=== PATIENT | female | born 1980 | race Caucasian/White ===

== ENCOUNTER 2017-03-19 08:55 | Emergency (ER) | payer OTHER ==
[2017-03-19 09:29] LABS: HEMOGLOBIN 15.3 gm/dl (12.3-15.3); WHITE BLOOD COUNT 9.7 K/UL (4.5-11.0)
[2017-03-19 10:12] LABS: BUN/CREATININE RATIO 10 (0-10)
== END 2017-03-19 13:40 | disposition home or self-care (01) ==
LOC: ER1 08:55
PROVIDERS: Emergency Medicine
DX: R07.1 Chest pain on breathing (principal); E87.6 Hypokalemia; R91.8 Other nonspecific abnormal finding of lung field; R06.02 Shortness of breath; R11.0 Nausea; F17.200 Nicotine dependence, unspecified, uncomplicated
CPT/HCPCS: 36415; 71010; 71020; 80053; 82550; 82553; 83874; 84484; 85025; 85379; 93005; 99285

== ENCOUNTER → 2017-03-26 | Outpatient (CLI) | payer OTHER ==
[2017-03-26 14:14] LABS: HEMOGLOBIN 12.8 gm/dl (12.3-15.3); RED BLOOD COUNT 4.21 M/UL (4.00-5.10); WHITE BLOOD COUNT 7.6 K/UL (4.5-11.0)
[2017-03-26 14:27] LABS: BUN/CREATININE RATIO 8 (0-10)
== END ==
LOC: LAB 13:28
PROVIDERS: Family Medicine
DX: F31.9 Bipolar disorder, unspecified (principal)
CPT/HCPCS: 36415; 80053; 85025

== ENCOUNTER 2021-02-28 23:09 | Emergency (ER) | payer OTHER ==
[~2021-02-28 23:09] MED LIST: CYCLOBENZAPRINE10 MG PO; FLONASE 0.05% N16 GM; IBUPROFEN600 MG PO; SUDAFED 60 MG T60 MG PO; TYLENOL 500 MG500 MG PO; ZITHROMAX250 MG PO; ZOFRAN ODT 4 MG4 MG SL
[2021-03-01 00:20] LABS: HEMOGLOBIN 12.6 gm/dl (12.3-15.3); RED BLOOD COUNT 4.08 M/UL (4.00-5.10)
[2021-03-01 00:37] LABS: BUN/CREATININE RATIO 14 (0-10)
== END 2021-03-01 06:05 | disposition home or self-care (01) ==
LOC: ER1 23:09
PROVIDERS: Physician Assistant
DX: R55 Syncope and collapse (principal); R42 Dizziness and giddiness; R59.0 Localized enlarged lymph nodes; J94.8 Other specified pleural conditions; F17.210 Nicotine dependence, cigarettes, uncomplicated; Z88.6 Allergy status to analgesic agent
CPT/HCPCS: 70450; 71045; 80053; 81001; 82550; 82553; 83874; 83880; 84484; 84703; 85025; 85379; 85610; 85730; 87086; 99284; Q9967

== ENCOUNTER → 2021-06-02 | Outpatient (CLI) | payer OTHER | LOC: RAD 11:33 | DX: M54.5 Low back pain (principal); M54.6 Pain in thoracic spine; M50.30 Other cervical disc degeneration, unspecified cervical region | CPT/HCPCS: 72050; 72072; 72110 ==

== ENCOUNTER 2021-06-09 23:07 | Emergency (ER) | payer SELFPAY ==
[2021-06-10 00:02] LABS: BUN/CREATININE RATIO 8 (0-10)
[2021-06-10 00:17] LABS: HEMOGLOBIN 13.3 gm/dl (12.3-15.3); RED BLOOD COUNT 4.44 M/UL (4.00-5.10); WHITE BLOOD COUNT 6.3 K/UL (4.5-11.0)
[2021-06-10] MEDS ORDERED: BENTYL 20MG TAB20 MG PO (05:38)
[2021-06-10] MEDS ORDERED: ZOFRAN ODT 4 MG4 MG SL (05:38)
[2021-06-10] MEDS ORDERED: PEPCID20 MG PO (05:38)
== END 2021-06-10 05:45 | disposition home or self-care (01) ==
LOC: ER1 23:07
PROVIDERS: Physician Assistant
DX: R11.2 Nausea with vomiting, unspecified (principal); R19.7 Diarrhea, unspecified; F17.200 Nicotine dependence, unspecified, uncomplicated; Z20.822 Contact with and (suspected) exposure to COVID-19
CPT/HCPCS: 80053; 81001; 83690; 84703; 85025; 87086; 96372; 96374; 96375; 99284; J0500; J2405; U0002

== ENCOUNTER 2021-10-04 01:42 | Emergency (ER) | payer SELFPAY ==
[~2021-10-04 01:42] MED LIST changes: +BENTYL 20MG TAB20 MG PO; +PEPCID20 MG PO
[2021-10-04] MEDS ORDERED: DELSYM30 MG/5 ML PO (19:41)
[2021-10-04] MEDS ORDERED: 12 HOUR DECONG120 M1 PO (19:41)
[2021-10-04] MEDS ORDERED: MEDROL DOSEPAK 24 MG PO (19:41)
[2021-10-04] MEDS ORDERED: FLONASE 0.05% N16 GM (19:41)
== END 2021-10-04 03:00 | disposition left against medical advice (07) ==
LOC: ER1 01:42
DX: Z53.21 Procedure and treatment not carried out due to patient leaving prior to being seen by health care provider (principal)
CPT/HCPCS: 99283

== ENCOUNTER 2021-10-04 16:40 | Emergency (ER) | payer OTHER ==
[2021-10-04] MEDS ORDERED: FLONASE 0.05% N16 GM (19:41)
[2021-10-04] MEDS ORDERED: 12 HOUR DECONG120 M1 PO (19:41)
[2021-10-04] MEDS ORDERED: MEDROL DOSEPAK 24 MG PO (19:41)
[2021-10-04] MEDS ORDERED: DELSYM30 MG/5 ML PO (19:41)
== END 2021-10-04 19:07 | disposition home or self-care (01) ==
LOC: ER1 16:40
DX: J06.9 Acute upper respiratory infection, unspecified (principal); J44.9 Chronic obstructive pulmonary disease, unspecified; F17.200 Nicotine dependence, unspecified, uncomplicated; Z88.6 Allergy status to analgesic agent; Z20.822 Contact with and (suspected) exposure to COVID-19
CPT/HCPCS: 99283; U0002

== ENCOUNTER 2022-03-29 21:10 | Emergency (ER) | payer OTHER ==
[~2022-03-29 21:10] MED LIST changes: +12 HOUR DECONG120 M1 PO; +DELSYM30 MG/5 ML PO; +MEDROL DOSEPAK 24 MG PO
[2022-03-29 21:26] LABS: HEMOGLOBIN 12.6 gm/dl (12.3-15.3); RED BLOOD COUNT 4.07 M/UL (4.00-5.10)
[2022-03-30 01:00] LABS: BUN/CREATININE RATIO 7 (0-10)
== END 2022-03-30 01:24 | disposition home or self-care (01) ==
LOC: ER1 21:10
PROVIDERS: Family Medicine
DX: R07.9 Chest pain, unspecified (principal); F17.210 Nicotine dependence, cigarettes, uncomplicated; Z88.6 Allergy status to analgesic agent
CPT/HCPCS: 71045; 80053; 81001; 82550; 82553; 84484; 85025; 93005; 99285